=== PATIENT | female | born 1970 | race Caucasian/White ===

== ENCOUNTER 2022-01-27 10:13 | Emergency (ER) | payer MEDICAID ==
[~2022-01-27] VITALS: Ht 157.5 cm; Wt 77.1 kg
[2022-01-27 10:15] VITALS: BP_SYST 121
[2022-01-27] MEDS ORDERED: AUG875 PO (11:57)
[2022-01-27] MEDS ORDERED: IBUP-1969 PO (12:06)
[2022-01-27] MEDS ORDERED: HYDROcodone/ACETAMIN 5-325 MG TAB (NORCO/ VICODIN) PO ONE (12:15)
[2022-01-27] MEDS ORDERED: IBUPROFEN 600 MG TABLET PO ONE (12:15)
[2022-01-27 12:20] VITALS: BP_SYST 121
== END 2022-01-27 12:20 | disposition home or self-care (01) ==
LOC: SED 10:13
DX: K04.7 Periapical abscess without sinus (principal); R22.0 Localized swelling, mass and lump, head; F17.200 Nicotine dependence, unspecified, uncomplicated; Z79.899 Other long term (current) drug therapy
CPT/HCPCS: 99283

== ENCOUNTER 2022-11-10 15:00 | Emergency (ER) | payer SELFPAY ==
[~2022-11-10] VITALS: Ht 157.5 cm; Wt 66.2 kg
[~2022-11-10 15:00] MED LIST: AUG875 PO; IBUP-1969 PO
[2022-11-10 15:22] VITALS: BP_SYST 125; PULSE 86; RESP 18; TEMP 98.3; O2SAT 97
[2022-11-10 15:47] LABS: BILIRUBIN,URINE NEGATIVE (NEGATIVE); CLARITY/URINE CLEAR (CLEAR); COLOR,URINE YELLOW (YELLOW); GLUCOSE,URINE NEGATIVE (NEGATIVE); KETONES,URINE NEGATIVE (NEGATIVE); LEUKOCYTE ESTERASE ,URINE NEGATIVE (NEGATIVE); NITRITE, URINE NEGATIVE (NEGATIVE); PROTEIN URINE NEGATIVE (NEGATIVE); UROBILINOGEN,URINE 0.2 (0.2-1.0)
[2022-11-10 15:50] LABS: BLOOD, URINE TRACE (NEGATIVE)
[2022-11-10 16:40] LABS: BACTERIA,URINE FEW /HPF (None Seen); WBC,URINE 0-3 /HPF (0-3)
[2022-11-10] MEDS ORDERED: KETOROLAC TROMETHAMINE 60 MG/2 ML VIAL IM ONE (16:45)
[2022-11-10] MEDS ORDERED: HYDROcodone/ACETAMIN 10-325 MG TAB PO ONE (17:15)
[2022-11-10] MEDS ORDERED: MORPHINE SULFATE 10 MG/ML VIAL IM ONE (18:30)
[2022-11-10] MEDS ORDERED: HYDR-3927 PO (20:42)
== END 2022-11-10 22:43 | disposition home or self-care (01) ==
LOC: SED 15:00
DX: R10.9 Unspecified abdominal pain (principal); R07.81 Pleurodynia; M54.50 Low back pain, unspecified; Z79.899 Other long term (current) drug therapy
CPT/HCPCS: 99285; 74176; 81000; 71100; 76376; 96372; J1885; J2270